=== PATIENT | male | born 2000 | race Hispanic/Latino ===

== ENCOUNTER 2021-10-19 04:57 | Emergency (ER) | payer SELFPAY ==
[2021-10-19] MEDS ORDERED: ONDANSETRON 4 MG ODT TAB PO ONE (09:51)
[2021-10-19] MEDS ORDERED: FAMOTIDINE 20 MG TAB PO ONE (09:51)
[2021-10-19] MEDS ORDERED: ALUM-MAG HYDROXIDE-SIMETHICONE 200-200-20MG/5ML ORAL LIQD 30 ML PO ONE (09:52)
[2021-10-19] MEDS ORDERED: DICYCLOMINE 10 MG/5 ML ORAL LIQD PO ONE (09:52)
[2021-10-19] MEDS ORDERED: LIDOCAINE VISCOUS 2% 15 ML ORAL LIQD PO ONE (09:52)
--- NOTE | 2021-10-19 09:55 | Emergency Department Report ---
ED Abdominal Pain HPI - General Chief Complaint: Nausea/Vomiting/Diarrhea Stated Complaint: SOB Time Seen by Provider: 10/19/21 09:50 Source: patient Mode of arrival: Ambulatory Limitations: No Limitations - History of Present Illness Initial Comments: 20-year-old black male with no past medical history presents to the emergency department for evaluation of nausea vomiting and abdominal cramping that started at midnight last night. He states that he vomited several times and the last couple times he vomited he noticed some traces of blood in his vomiting, he states that seeing the blood made him very nervous and he started to shake and have numbness in his hands. He states that since he has been waiting in the waiting room, that his abdominal pain has mostly resolved and he no longer feels nauseated. He states that he has had this type of pain before for which she was treated for GERD and has significant improvement. He states that pain at its worst was 8 out of 10 but now it is 5-6 out of 10. He denies fever, diarrhea, dysuria, and penile discharge. MD Complaint: abdominal pain -: Sudden, Last night Location: epigastric Radiation: none Migration to: no migration Severity scale (0 -10): 10 Quality: aching, burning Consistency: intermittent Associated Symptoms: nausea, vomiting. denies: diarrhea, fever, chills, dysuria, hematemesis, hematochezia, melena, hematuria, anorexia, syncope - Related Data Previous Rx's Medication Instructions Recorded Last Taken Type Famotidine [Pepcid] 20 mg PO BID #60 tablet 10/19/21 Unknown Rx Allergies Allergy/AdvReac Type Severity Reaction Status Date / Time No Known Allergies Allergy Verified 10/19/21 05:10 ED Review of Systems ROS: Stated complaint: SOB Other details as noted in HPI Comment: All other systems reviewed and negative Constitutional: denies: chills, fever, weakness Eyes: denies: vision change ENT: denies: congestion Respiratory: denies: cough, shortness of breath, SOB with exertion, SOB at rest Cardiovascular: denies: chest pain, palpitations, dyspnea on exertion Gastrointestinal: abdominal pain, nausea, vomiting. denies: diarrhea, hematemesis, melena, hematochezia Genitourinary: denies: urgency, dysuria, frequency, hematuria, discharge, testicular pain Musculoskeletal: denies: back pain Skin: denies: rash, lesions Neurological: denies: headache, weakness ED Past Medical Hx - Medications Home Medications: Home Medications Medication Instructions Recorded Confirmed Last Taken Type Famotidine [Pepcid] 20 mg PO BID #60 tablet 10/19/21 Unknown Rx ED Physical Exam - General Limitations: No Limitations General appearance: alert, in no apparent distress - Head Head exam: Present: atraumatic - Eye Eye exam: Present: normal appearance. Absent: conjunctival injection, periorbital swelling, periorbital tenderness - Neck Neck exam: Present: normal inspection, full ROM. Absent: tenderness, lymphadenopathy - Respiratory Respiratory exam: Present: normal lung sounds bilaterally. Absent: respiratory distress, wheezes, rales, rhonchi, stridor, chest wall tenderness - Cardiovascular Cardiovascular Exam: Present: regular rate, normal heart sounds - GI/Abdominal GI/Abdominal exam: Present: soft, normal bowel sounds. Absent: distended, tenderness, guarding, rebound, rigid - Extremities Exam Extremities exam: Present: normal inspection, normal capillary refill - Back Exam Back exam: Present: normal inspection. Absent: CVA tenderness (R), CVA t enderness (L), vertebral tenderness - Neurological Exam Neurological exam: Present: alert, oriented X3, normal gait - Psychiatric Psychiatric exam: Present: normal affect, normal mood - Skin Skin exam: Present: warm, dry, intact, normal color ED Course Vital Signs 10/19/21 10/19/21 05:00 10:40 Temperature 98.0 F 98.7 F Pulse Rate 89 78 Respiratory 24 14 Rate Blood Pressure 118/72 Blood Pressure 114/80 [Left] O2 Sat by Pulse 100 100 Oximetry ED Medical Decision Making - Medical Decision Making 20-year-old black male with no past medical history presents to the emergency department for evaluation of nausea vomiting and abdominal cramping that started at midnight last night. He states that he vomited several times and the last couple times he vomited he noticed some traces of blood in his vomiting, he states that seeing the blood made him very nervous and he started to shake and have numbness in his hands. He states that since he has been waiting in the waiting room, that his abdominal pain has mostly resolved and he no longer feels nauseated. He states that he has had this type of pain before for which she was treated for GERD and has significant improvement. He states that pain at its worst was 8 out of 10 but now it is 5-6 out of 10. He denies fever, diarrhea, dysuria, and penile discharge. Physical exam unremarkable. Symptoms were resolved after medication. Patient will be discharged home with prescription for Pepcid to take as directed. He is advised to follow-up with his primary care provider if no improvement or wor sening symptoms or return to the emergency department for any concerning symptoms. He verbalizes understanding of and agreement with plan of care. Critical care attestation.: If time is entered above; I have spent that time in minutes in the direct care of this critically ill patient, excluding procedure time. ED Disposition Clinical Impression: Epigastric pain Disposition: 01 HOME / SELF CARE / HOMELESS Is pt being admited?: No Does the pt Need Aspirin: No Condition: Stable Instructions: Heartburn, [id number], Food Choices for Gastroesophageal Reflux Disease, Adult, Abdominal Pain, Adult, [id number], Gastroesophageal Reflux Disease, Adult, [id number] Additional Instructions: Take medication as prescribed. Follow-up with primary care provider if no improvement or worsening symptoms. Return to the emergency department as needed. Prescriptions: Famotidine [Pepcid] 20 mg PO BID #60 tablet Referrals: LUPE VERONICA MD [Staff Physician] - 3-5 Days Forms: Work/School Release Form(ED) Time of Disposition: 09:55
[2021-10-19 10:41] VITALS: BP 114/80
--- NOTE | 2021-10-19 13:52 | Electrocardiograph Report ---
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
== END 2021-10-19 10:41 | disposition home or self-care (01) ==
LOC: ED 04:57
DX: R10.13 Epigastric pain (principal)
CPT/HCPCS: 93005; 99282; J3490; Q0162